=== PATIENT | male | born 1985 | race American Indian/Alaskan Native ===

== ENCOUNTER 2017-09-04 11:25 | Emergency (ER) | payer OTHER ==
[2017-09-04 12:13] LABS: BASO # 0.1 K/uL (0.0-0.2); BASO % 1.1 % (0.0-2.0); EOS % 0.2 % (0.0-4.0); HEMOGLOBIN 14.6 g/dL (12.0-18.0); LYMPH # 2.4 K/uL (1.0-4.3); LYMPH % 45.6 % (20.0-40.0); MEAN CELL VOLUME 86.2 fL (80.0-94.0); MEAN CORPUSCULAR HEMOGLOBIN 29.9 pg (27.0-31.0); MEAN CORPUSCULAR HGB CONC 34.7 g/dL (33.0-37.0); MEAN PLATELET VOLUME 6.8 fL (7.2-11.7); MONO # 0.3 K/uL (0.0-0.8); NEUT # 2.5 K/uL (1.8-7.0); NEUT % 47.1 % (50.0-75.0); NRBC % 0.2 % (0.0-2.0); RBC 4.88 Mil/uL (4.40-5.90); RED CELL DISTRIBUTION WIDTH 13.6 % (11.5-14.5); WHITE BLOOD COUNT 5.3 K/uL (4.8-10.8)
[2017-09-04 12:17] LABS: URINE BILIRUBIN NEGATIVE (NEGATIVE); URINE BLOOD NEGATIVE (NEGATIVE); URINE CLARITY Clear (Clear); URINE COLOR Yellow (YELLOW); URINE GLUCOSE (UA) NORMAL (Normal); URINE LEUKOCYTE ESTERASE NEG Leu/uL (Negative); URINE PROTEIN NEGATIVE (NEGATIVE)
[2017-09-04 12:29] LABS: ALB/GLOB RATIO 1.2 (1.0-2.1); ALBUMIN 4.5 g/dL (3.5-5.0); ALT/SGPT 42 U/L (21-72); AST/SGOT 52 U/L (17-59); BLOOD UREA NITROGEN 12 mg/dL (9-20); CALCIUM 9.4 mg/dl (8.6-10.4); GFR AFRICAN-AMERICAN > 60; GFR NON-AFRICAN AMERICAN > 60
--- NOTE | 2017-09-04 12:40 | C.PDOC ---
History Of Present Illness <Thelma Rodriges - Last Filed: 09/04/17 19:00> <Ganesh Ac - Last Filed: 09/04/17 21:53> 32 y/o male with history of Schizophrenia presents to ED stating he is hearing voice "telling him to kill himself" and admits to suicidal and homicidal ideation. Patient reports he is non compliant with his chronic psych medication. Admits to h/o inpatient psychiatric admissions. (+) cocaine and marijuana use Denies chest pain, sob, nausea, vomiting or any other complaints at this time. (Thelma Rodriges) History Per: Patient History/Exam Limitations: no limitations Onset/Duration Of Symptoms: Days Current Symptoms Are (Timing): Still Present Suicide/Self Injury Attempted (Context): None Modifying Factor(s): Marijuana, Cocaine Associated Symptoms: Depression, Suicidal Thoughts <Thelma Rodriges - Last Filed: 09/04/17 19:00> <Ganesh Ac - Last Filed: 09/04/17 21:53> Time Seen by Provider: 09/04/17 11:38 Chief Complaint (Nursing): Psychiatric Evaluation Past Medical History Reviewed: Historical Data, Nursing Documentation, Vital Signs - Medical History PMH: No Chronic Diseases Surgical History: No Surg Hx Family History: States: No Known Family Hx - Social History Hx Alcohol Use: Yes Hx Substance Use: Yes (marijuana, and cocaine) - Immunization History Hx Tetanus Toxoid Vaccination: No Hx Influenza Vaccination: No Hx Pneumococcal Vaccination: No <Thelma Rodriges - Last Filed: 09/04/17 19:00> <Ganesh Ac - Last Filed: 09/04/17 21:53> Vital Signs: Last Vital Signs Temp 98.2 F 09/04/17 20:24 Pulse 84 09/04/17 20:24 Resp 20 09/04/17 20:24 BP 133/79 09/04/17 20:24 Pulse Ox 97 09/04/17 20:24 Review Of Systems Cardiovascular: Negative for: Chest Pain Respiratory: Negative for: Shortness of Breath Gastrointestinal: Negative for: Nausea, Vomiting Psych: Positive for: Suicidal ideation. Negative for: Anxiety, Withdrawal <Thelma Rodriges - Last Filed: 09/04/17 19:00> Physical Exam - Physical Exam Appears: Non-toxic, No Acute Distress Skin: Warm, Dry, No Rash Head: Atraumatic, Normacephalic Eye(s): bilateral: Normal Inspection, EOMI Nose: Normal Oral Mucosa: Moist Neck: Normal ROM, Supple Chest: Symmetrical Cardiovascular: Rhythm Regular Respiratory: Normal Breath Sounds, No Accessory Muscle Use, No Rales, No Rhonchi , No Wheezing Gastrointestinal/Abdominal: Soft, No Tenderness, No Guarding, No Rebound Back: No CVA Tenderness Extremity: Normal ROM, Capillary Refill (<2 seconds) Neurological/Psych: Oriented x3, Normal Speech, Normal Cognition <Thelma Rodriges - Last Filed: 09/04/17 19:00> ED Course And Treatment - Laboratory Results Result Diagrams: 09/04/17 12:03 09/04/17 12:03 O2 Sat by Pulse Oximetry: 100 (RA) Pulse Ox Interpretation: Normal Progress Note: 1:1 ordered. Patient medically cleared for admission. On re- evaluation, pt is stable. Ate lunch. Has no complaints. Patient eval by perinatal social worker, [place] [facility] [place] [facility] [place] evaluated pt and comitted him, pending transfer. Patient signed out to Dr. Ac at 7pm pending CXR, EKG, and transfer. <Thelma Rodriges - Last Filed: 09/04/17 19:00> - Laboratory Results Result Diagrams: 09/04/17 12:03 09/04/17 12:03 ECG: Interpreted By Me, Viewed By Me ECG Rhythm: Sinus Rhythm, Nonspecific Changes ECG Interpretation: No Acute Changes Rate From EC - Radiology CXR: Interpreted by Me, Viewed By Me CXR Interpretation: Yes: No Acute Disease Progress Note: Pt was signed out to me at 7pm by Dr. Roger/YANG Mitchell pending transfer to [facility] [place]. <Ganesh Ac - Last Filed: 09/04/17 21:53> Disposition - Disposition Disposition Time: 19:04 <Thelma Rodriges - Last Filed: 09/04/17 19:00> - Disposition Disposition Time: 21:53 <Ganesh Ac E - Last Filed: 09/04/17 21:53> - Disposition Disposition: Trans to Other Acute Care Hosp Condition: STABLE - Clinical Impression Clinical Impression: Schizophrenia, Depression - PA / [employer] / Resident Statement MD/DO has reviewed & agrees with the documentation as recorded. - Scribe Statement The provider has reviewed the documentation as recorded by the Scribe <Thelma Rodriges - Last Filed: 09/04/17 19:00> <Ganesh Ac - Last Filed: 09/04/17 21:53> - Scribe Statement Kate Sharp All medical record entries made by the Scribe were at my direction and personally dictated by me. I have reviewed the chart and agree that the record accurately reflects my personal performance of the history, physical exam, medical decision making, and the department course for this patient. I have also personally directed, reviewed, and agree with the discharge instructions and disposition. (Thelma Rodriges)
[2017-09-04 12:41] LABS: BARBITURATES, UR NEGATIVE (NEGATIVE); BENZODIAZEPINES, UR NEGATIVE (NEGATIVE); OPIATES, UR NEGATIVE (NEGATIVE); PHENCYCLIDINE, UR NEGATIVE (NEGATIVE)
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
[2017-09-04] MEDS ORDERED: DiphenhydrAMINE 50 mg/ml Inj IM PRN (18:00)
[2017-09-05 03:04] VITALS: RESP 17; O2SAT 98
[2017-09-05 04:02] VITALS: BP 131/72; PULSE 72; TEMP 97.8
--- NOTE | 2017-09-05 12:44 | RAD ---
HISTORY: Screening COMPARISON: No prior. FINDINGS: LUNGS: Poor inspiration with low lung volumes, crowded bronchovascular markings and mild bibasilar atelectasis PLEURA: No significant pleural effusion identified, no pneumothorax apparent. CARDIOVASCULAR: Normal. OSSEOUS STRUCTURES: No significant abnormalities. VISUALIZED UPPER ABDOMEN: Normal. OTHER FINDINGS: None. IMPRESSION: No active disease.
== END 2017-09-05 04:21 | disposition short-term general hospital (02) ==
LOC: C.ER 11:25
DX: F20.0 Paranoid schizophrenia (principal); F32.9 Major depressive disorder, single episode, unspecified; F14.90 Cocaine use, unspecified, uncomplicated; F12.90 Cannabis use, unspecified, uncomplicated; Z72.89 Other problems related to lifestyle